=== PATIENT | male | born 1965 | race Caucasian/White ===

== ENCOUNTER 2020-09-17 16:28 | Emergency (ER) | payer BC ==
--- NOTE | 2020-09-17 17:06 | EDM.PDOC ---
ED HPI GENERAL MEDICAL PROBLEM - General Stated Complaint: LACERATION TO NOSE Time Seen by Provider: 09/17/20 16:45 Source of Information: Reports: Patient History Limitations: Reports: No Limitations - History of Present Illness INITIAL COMMENTS - FREE TEXT/NARRATIVE: 55-year-old male who recently was admitted to [facility] in [place] secondary to pancreatitis and pancreatic pseudocyst and had procedures which drained the pseudocyst. He improved and was discharged recently. He tells me that he has to go back at the end of this coming week for further reevaluation and additional testing and he had been feeling okay but just tired most of the time. At approximate 4 PM today he got up and he states that he took 3 steps and then he doesn't remember anything else. He was found on the floor by his friend after the friend heard something crash and he went in and found the patient lying on the floor with blood coming from his nose and he had apparently hit his face on the way down. The patient was unconscious at the time. There was no reports of any seizure activity. He apparently came around and less than about 30 seconds and appear to be responding normally and appeared to be his "normal self". The patient does not remember falling. He did not have any feelings of weakness or dizziness prior to this occurring. He did not feel that his heart was beating fast or slow. He had no pains. He has pain in his face and nose and he rates that as about a 2/10 now. It is more of a sore pain it is worse with palpation and he does have a deformity to his nose. The patient currently denies any neck pain. He denies any chest pain or shortness of breath. He had none of this prior to the syncopal episode. He has no nausea or vomiting and he has had no diarrhea. He has no arm or leg weakness. He has no vision problem. 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 He has no active bleeding at present. There are no other associated signs or symptoms. There are no other modifying factors. 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 [Unable to Verify Home Med List] 09/17/20 [History] Past Medical History Gastrointestinal History: Reports: Pancreatitis, Other (See Below) (Intestinal artery blood clot, on Eliquis.) Genitourinary History: Reports: Prostate Disorder Psychiatric History: Reports: Addiction (Alcohol abuse) Oncologic (Cancer) History: Reports: Prostate - Past Surgical History GI Surgical History: Reports: EGD (Multiple), Other (See Below) (Trainees pancreatic pseudocyst) Male Surgical History: Reports: Prostatectomy Neurological Surgical History: Reports: Lumbar Spine (Back surgery.) Social & Family History - Tobacco Use Tobacco Use Status *Q: Unknown Ever Used Tobacco (Nonsmoker.) - Alcohol Use Alcohol Use History: Yes Alcohol Use Frequency: Binges (Heavy EtOH use until a week and a half ago.) - Living Situation & Occupation Social History Comment: Here with a friend. ED ROS GENERAL - Review of Systems Review Of Systems: See Below Constitutional: Denies: Fever, Chills HEENT: Reports: Nosebleed, Nose Pain Respiratory: Denies: Shortness of Breath, Pleuritic Chest Pain, Cough Cardiovascular: Reports: Syncope. Denies: Chest Pain, Lightheadedness Endocrine: Reports: Fatigue. Denies: Polydypsia, Polyuria GI/Abdominal: Denies: Abdominal Pain, Nausea, Vomiting : Denies: Dysuria, Hematuria Musculoskeletal: Denies: Neck Pain, Shoulder Pain, Back Pain Skin: Reports: Wound (On bridge of nose. Abrasion on his upper lip). Denies: Diaphoresis, Rash Neurological: Reports: Syncope. Denies: Confusion, Headache Psychiatric: Reports: No Symptoms Hematologic/Lymphatic: Reports: Easy Bleeding (On Eliquis), Easy Bruising Immunologic: Reports: Other (It has been greater than 5 years since his last tetanus immunization) - Physical Exam Exam: See Below Exam Limited By: No Limitations General Appearance: Alert, WD/WN, No Apparent Distress, Other (He is fluent and appropriate in his conversation. He is appropriately responsive and interactive.) Eye Exam: Bilateral Eye: EOMI, Normal Inspection, PERRL Ears: Normal External Exam, Normal Canal, Normal TMs Nose: Nasal Tenderness, Nasal Deformity, Nasal Swelling, Nasal Drainage, Other (No septal hematoma.) Throat/Mouth: Normal Voice, No Airway Compromise, Other (Swelling to upper lip with abrasion over central upper lip) Head Exam: Normocephalic, Facial Abrasions, Facial Lacerations (Nasal laceration. Not suturable.), Facial Swelling, Facial Tenderness Neck: Normal Inspection, Non-Tender. No: Tender Midline Respiratory/Chest: No Respiratory Distress, Lungs Clear, Normal Breath Sounds, No Accessory Muscle Use, Chest Non-Tender Cardiovascular: Normal Peripheral Pulses, Regular Rate, Rhythm, No Edema, No Gallop, No Murmur GI/Abdominal: Normal Bowel Sounds, Soft, Non-Tender, No Organomegaly, No Distention, No Mass Neuro Exam (Abbreviated): Alert, Oriented, CN II-XII Intact, Normal Cognition, No Motor/Sensory Deficits Back Exam: Normal Inspection, Full Range of Motion Extremities: Normal Inspection, Normal Range of Motion, Non-Tender, No Pedal Edema, Normal Capillary Refill Psychiatric: Normal Affect Skin Exam: Warm, Dry, Intact, Normal Color, No Rash, Wound/Incision (Superficial, centimeter into the bridge of the nose. It is nonsuturable. It will be treated with Steri-Strips. This is to the patient's liking and it was his choice.) #1 Interpretation EKG Date: 09/17/20 Time: 16:32 Rhythm: NSR Rate (Beats/Min): 53 [place]: Normal P-Wave: Present QRS: Normal ST-T: Normal QT: Normal Comparison: NA - No Prior EKG Course - Vital Signs Last Recorded V/S: Last Vital Signs Temp 36.5 C 09/17/20 16:28 Pulse 51 L 09/17/20 16:28 Resp 18 09/17/20 16:28 BP 111/70 09/17/20 16:28 Pulse Ox 100 09/17/20 16:28 Orthostatic Blood Pressure [ 86/60 Standing] Orthostatic Blood Pressure [ 93/66 Sitting] Orthostatic Blood Pressure [ 99/72 Supine] - Orders/Labs/Meds Labs: Laboratory Tests 09/17/20 09/17/20 09/17/20 Range/Units 17:55 17:55 17:55 WBC 5.6 (3.2-10.1) x10-3/uL RBC 3.70 L (3.90-5.90) x10(6)uL Hgb 10.2 L (12.9-17.7) g/dL Hct 30.9 L (38.3-50.1) % MCV 83.4 (80.8-98.7) fL MCH 27.5 (27.0-33.3) pg MCHC 32.9 (28.7-35.3) g/dL RDW 17.6 H (12.4-15.0) % Plt Count 385 (117-477) x10(3)uL MPV 8.1 (6.7-11.0) fL Neut % (Auto) 57.6 (40.3-71.8) % Lymph % (Auto) 20.0 (15.8-45.3) % [place] % (Auto) 10.4 (5.5-15.2) % Eos % (Auto) 8.8 H (0.1-6.8) % Baso % (Auto) 3.2 (0.3-3.8) % Neut # (Auto) 3.2 (1.7-6.9) x10-3/uL Lymph # (Auto) 1.1 (0.5-4.5) x10-3/uL [place] # (Auto) 0.6 (0.0-1.2) x10-3/uL Eos # (Auto) 0.5 (0.0-0.6) x10-3/uL Baso # (Auto) 0.2 (0.0-0.3) x10-3/uL Sodium 142 (135-145) mmol/L Potassium 4.1 (3.5-5.3) mmol/L Chloride 105 (100-110) mmol/L Carbon Dioxide 29 (21-32) mmol/L BUN 16 (7-18) mg/dL Creatinine 1.2 (0.70-1.30) mg/dL Est Cr Clr Drug Dosing 70.13 mL/min Estimated GFR (MDRD) > 60 (>60) BUN/Creatinine Ratio 13.3 (9-20) Glucose 102 (80-116) mg/dL Calcium 8.3 L (8.6-10.2) mg/dL Magnesium 2.0 (1.8-2.5) mg/dL Total Bilirubin 0.5 (0.1-1.3) mg/dL AST 24 (5-25) IU/L ALT 30 (12-36) U/L Alkaline Phosphatase 236 H (56-112) IU/L Troponin I 5.6 (4.0-60.3) pg/mL Total Protein 7.1 (6.0-8.0) g/dL Albumin 2.8 L (3.5-5.2) g/dL Globulin 4.3 g/dL Albumin/Globulin Ratio 0.7 Ethyl Alcohol < 0.03 (<0.03) % Meds: Medications Discontinued Medications Generic Name Dose Route Start Last Admin Trade Name Freq PRN Reason Stop Dose Admin Sodium Chloride 1,000 mls @ 999 mls/hr 09/17/20 18:17 09/17/20 18:32 Normal Saline IV 09/17/20 19:17 999 mls/hr .BOLUS ONE Administration Sodium Chloride 10 ml 09/17/20 17:24 Sodium Chloride 0.9% 10 Ml Syringe FLUSH ASDIRECTED PRN Keep Vein Open - Radiology Interpretation Free Text/Narrative:: CT scan of the head showed no acute intracranial hemorrhage or mass effect. Ther e was a chronic lacunar infarct in the head of the right caudate nucleus. No was no evidence of fracture. This was per the [facility] radiologist. CT scan of cervical spine showed no acute fracture or traumatic subluxation. There is advanced multilevel cervical spondylosis. This was per the [facility] radiologist. CT scan of the facial bones shows nasal fracture with nasal septum fracture and deviated septum. This was per the [facility] radiologist. - Re-Assessments/Exams Free Text/Narrative Re-Assessment/Exam: 09/17/20 19:15: All the patient's lab tests were reassuring. His blood pressure is still a little on the low side. He is receiving IV normal saline as a bolus. He has remained neurologically intact. His mental status unchanged and he remains normally responsive and interactive. CT scans are all pending at this point. The patient's EKG was reassuring as well. We will continue IV fluid hydration and close monitoring. 09/17/20 20:15: CT scans of the patient's head, cervical spine and facial bones show a nasal fracture with nasal septum fracture. There is no intracranial hemorrhage or fracture. There is no cervical spine fracture. The patient's blood pressure has improved somewhat. He has remained hemodynamically and neurologically stable. I have told the patient that I am concerned about the nature of his syncope and we will continue to watch him for an additional period of time. We will continue giving the patient IV fluid hydration. 09/17/20 21:30: The patient reports to me he feels better. His blood pressure is improved in the 110-120 systolic range. He has ambulated to the bathroom and was fairly steady on his feet. I again discussed with the patient that I was concerned about his syncopal episode and I felt that he should be admitted for further observation and close monitoring. The patient is not in favor of this and really wants to go home. I did discuss with him the risk of doing this and the reason for my concern and that this could be something hard related. He continues to feel that this would be unnecessary and he declines admission. I have told him to keep his follow-up appointment with the doctors at [facility] and precautions and reasons for return to the emergency department were discussed with the patient and his friend while the patient was in the emergency department and they were detailed in his discharge instructions. The nurses staff did apply Steri-Strips to his nasal wound and there was good skin closure of this. Departure - Departure Time of Disposition: 21:55 Disposition: Home, Self-Care 01 Condition: Good (Stable) Clinical Impression: Syncope Qualifiers: Syncope type: unspecified Qualified Code(s): R55 - Syncope and collapse Nasal fracture Qualifiers: Encounter type: initial encounter Fracture type: closed Qualified Code(s): S02.2XXA - Fracture of nasal bones, initial encounter for closed fracture Nasal laceration Qualifiers: Encounter type: initial encounter Qualified Code(s): S01.21XA - Laceration without foreign body of nose, initial encounter Facial contusion Qualifiers: Encounter type: initial encounter Qualified Code(s): S00.83XA - Contusion of other part of head, initial encounter - Discharge Information Instructions: Nasal Fracture, [id number], Facial or Scalp Contusion, [id number], Syncope, [id number] Referrals: Dipak Villegas MD [Primary Care Provider] - Forms: ED Department Discharge Additional Instructions: Your blood tests were all reassuringly normal. Your EKG was normal. The CT scan of your head showed no bleeding and no fracture in your skull. The CT scan of your neck showed arthritis but no fracture. The CT scan of your face showed a nasal fracture and your septum was deviated. The cut on your nose was Steri- Stripped. You should leave the Steri-Strips intact for at least the next 4-5 d ays. I am not sure why you had the passout spell. As we discussed, I did recommend that you be admitted and observed for a further period of time. However, you have decided to go home. You should increase your fluid intake. You definitely need to follow-up with your primary doctor. You can take Tylenol and ibuprofen for pain. Back to the emergency department for further pass out spells, severe weakness, chest pain, unrelenting vomiting or any other concerning signs or symptoms. Sepsis Event Note (ED) - Evaluation Sepsis Screening Result: No Definite Risk
[2020-09-17] MEDS ORDERED: Sodium Chloride 0.9% 10 ML Syringe FLUSH PRN (17:24)
[2020-09-17] MEDS: Sodium Chloride 0.9% 1,000 ML IV ONE (18:32)
== END 2020-09-17 22:15 | disposition home or self-care (01) ==
LOC: FB.ED 16:28
DX: S02.2XXA Fracture of nasal bones, initial encounter for closed fracture (principal); R55 Syncope and collapse; W18.39XA Other fall on same level, initial encounter
CPT/HCPCS: 70450; 70486; 72125; 80053; 80307; 83735; 84484; 85025; 93005; 99284; J7030